=== PATIENT | female | born 1955 | race Caucasian/White ===

== ENCOUNTER → 2016-03-24 | Outpatient (REF) | payer BC ==
[~2016-03-24] MED LIST: COUM2.5T11 PO; GLUCTAB6 PO; MULT1TAB9 PO; PERC5TAB6 PO; RISE1TAB8 PO; TYLE325T5 PO; VITA200016 PO
== END | disposition home or self-care (01) ==
LOC: M LAB REF 15:02
PROVIDERS: ATTEND Physician Assistant
DX: R30.0 Dysuria (principal)

== ENCOUNTER → 2016-08-03 | Outpatient (REF) | payer BC | LOC: M WUC 08:47 | PROVIDERS: ATTEND Physician Assistant | DX: R30.0 Dysuria (principal) ==

== ENCOUNTER → 2016-09-12 | Outpatient (CLI) | payer BC ==
[~2016-09-12] MED LIST changes: -COUM2.5T11 PO; +COUM2.5T17 PO; +PERC5TAB12 PO; -PERC5TAB6 PO
--- NOTE | 2016-09-13 09:45 | DEXA ---
AP SPINE L1 - L4 1.023 -1.4 -0.3 LT FEMUR TOTAL 0.805 -1.6 -0.7 RT FEMUR TOTAL Right hip replacement. TOTAL BODY TOTAL OTHER DUAL FEMUR FRAX* ASSESSMENT Risk factors: None. 10 year probability of fracture Major osteoporotic fracture 7.2 % Hip fracture 0.8 % COMMENTS: There is low bone density of the spine. There is low bone density of the left hip. The density of the spine has increased 10.2% since 08/17/2013. The density of the left hip has increased 0.2% since 08/17/2013. FOLLOW-UP: Recommendation for the next bone density exam: 2 years. ADRIEN
== END ==
LOC: M WHC 08:36
PROVIDERS: ATTEND Orthopaedic Surgery
DX: M54.5 Low back pain (principal); Z78.0 Asymptomatic menopausal state

== ENCOUNTER → 2016-09-24 | Outpatient (CLI) | payer BC ==
--- NOTE | 2016-09-29 07:49 | SLEEPCENT ---
DATE OF PROCEDURE: 09/24/2016 ORDERED BY: Kady Angel Nocturnal polysomnography was performed for the titration of pressure therapy in this patient with a clinical diagnosis of obstructive sleep apnea syndrome supported by home testing revealing a respiratory event index of 10. For testing, the patient was fit with a [employer] Brevida Nasal Pillow device of small size and 4 cm of water pressure were applied to the circuit and the lights were extinguished. 7 hours and 10 minutes of data were reviewed. There were 391 minutes of sleep identified. Sleep latency was short at 4.5 minutes. Rapid eye movement (REM) latency was normal at 89 minutes. Sleep architecture was good with 4 REM periods appreciated. Overall sleep efficiency was 94%. The patient's electrocardiogram (EKG) showed a sinus rhythm with an average heart rate of 54 beats per minute. Electroencephalogram (EEG) showed fairly normal waveforms for awake and sleep. Respiratory events were fully palliated with CPAP at a pressure of +5. There was some limb activity and 1 train of 30 events. Limb movement arousal index was borderline at 5.8. IMPRESSION: Obstructive sleep apnea syndrome (G47.33). RECOMMENDATION: Nightly use of pressure therapy at 5 cm of water.
== END ==
LOC: M SLEEP 20:12
PROVIDERS: ATTEND Nurse Practitioner Adult Health
DX: G47.33 Obstructive sleep apnea (adult) (pediatric) (principal)

== ENCOUNTER → 2017-04-29 | Outpatient (REF) | payer BC | LOC: M SFHCWAGY 15:16 | DX: Z12.4 Encounter for screening for malignant neoplasm of cervix (principal); N95.2 Postmenopausal atrophic vaginitis | CPT/HCPCS: G0123 ==

== ENCOUNTER → 2017-04-29 | Outpatient (CLI) | payer BC | LOC: M WHC 14:39 | DX: Z12.31 Encounter for screening mammogram for malignant neoplasm of breast (principal) | CPT/HCPCS: 77067 ==

== ENCOUNTER → 2018-11-17 | Outpatient (CLI) | payer BC ==
--- NOTE | 2018-11-17 15:47 | REPMRS ---
Patient History The patient states she had a clinical breast exam in 11/2018. Family history of colorectal cancer at age 70 in maternal grandmother. Took hormonal contraceptives for 8 years. 3D TOMOSYNTHESIS WAS PERFORMED. [facility] lifetime risk for breast cancer is 7.4%. Digital Woman Screen Mammo: November 17, 2018 - Exam #: [id number] Bilateral CC and MLO view(s) were taken. Technologist: Dayan Ashraf, Technologist Prior study comparison: April 29, 2017, digital woman screen mammo performed at [facility]. January 02, 2016, digital woman screen mammo performed at [place] [facility]. FINDINGS: The breast tissue is extremely dense which could obscure a lesion on mammography. There has been no change in the appearance of the mammogram from the prior studies. There is a moderate amount of residual fibroglandular tissue which is fairly symmetric. There is no interval development of dominant mass, areas of architectural distortion, or clustered microcalcification typical of malignancy. Assessment: BI-RADS/ACR category 1 mammogram. Negative Mammogram. Recommendation Routine screening mammogram in 1 year (for women over age 40). This mammogram was interpreted with the aid of an FDA-approved computer-aided dectection system. Electronically Signed By: Dat Zapata MD 11/17/18 [id number]
== END ==
LOC: M WHC 14:53
PROVIDERS: ATTEND Nurse Practitioner Family
DX: Z12.31 Encounter for screening mammogram for malignant neoplasm of breast (principal)

== ENCOUNTER → 2018-11-17 | Outpatient (REF) | payer BC | LOC: M SFHCWAGY 17:06 | PROVIDERS: ATTEND Nurse Practitioner Family | DX: R35.0 Frequency of micturition (principal) ==

== ENCOUNTER → 2018-11-25 | Outpatient (REF) | payer BC ==
[2018-11-25 16:19] LABS: APPEARANCE, URINE CLEAR (CLEAR); BACTERIA, URINE AUTO NEGATIVE (NEGATIVE); BILIRUBIN, URINE AUTO NEGATIVE (NEGATIVE); BLOOD, URINE BLOOD 1+ (NEGATIVE); COLOR, URINE YELLOW (YELLOW); GLUCOSE, URINE (UA) AUTO NEGATIVE (NEGATIVE); KETONE, URINE AUTO NEGATIVE (NEGATIVE); LEUKOCYTE ESTERASE, URINE AUTO NEGATIVE (NEGATIVE); MUCUS, URINE SMALL (NEGATIVE); NITRITE, URINE AUTO NEGATIVE (NEGATIVE); PROTEIN, URINE AUTO NEGATIVE (NEGATIVE); RBC, URINE AUTO 4 /HPF (0-3); SPECIFIC GRAVITY URINE AUTO 1.009 (1.002-1.035); SQUAMOUS EPITHELIAL CELL UR AU 0 /HPF (0-6); UROBILINOGEN, URINE AUTO 0.2 mg/dL (0.0-2.0); WBC, URINE AUTO 1 /HPF (0-3)
== END ==
LOC: M SFHCWAGY 15:36
PROVIDERS: ATTEND Nurse Practitioner Family
DX: R31.29 Other microscopic hematuria (principal)

== ENCOUNTER → 2019-02-09 | Outpatient (CLI) | payer BC ==
--- NOTE | 2019-02-11 11:01 | DEXA ---
AP SPINE L1 - L4 0.964 -1.9 -0.5 LT FEMUR TOTAL 0.792 -1.7 -0.7 LT NECK 0.780 -1.9 -0.6 RT FEMUR TOTAL Right hip replacement. RT NECK Right hip replacement. TOTAL BODY TOTAL OTHER COMMENTS: There is low bone density of the spine. There is low bone density of the left hip. The decreased density of the spine does represent a significant change. The decreased density of the left hip does not represent a significant change. The density of the spine has increased 3.9% since the initial exam on 08/17/2013. The spine density has decreased 5.8% since the most recent exam on 09/12/2016. The density of the left hip has decreased 1.4% since the initial exam on 08/17/2013. The density of the left hip has decreased 1.6% since the most recent exam on 09/12/2016. FOLLOW-UP: Recommendation for the next bone density exam: 2 years. ADRIEN
== END ==
LOC: M WHC 10:57
PROVIDERS: ATTEND Nurse Practitioner Family
DX: N95.9 Unspecified menopausal and perimenopausal disorder (principal)

== ENCOUNTER → 2019-12-07 | Outpatient (CLI) | payer BC ==
--- NOTE | 2019-12-07 15:42 | REPMRS ---
Patient History The patient states she had a clinical breast exam in November 2019. Family history of colorectal cancer at age 70 in maternal grandmother. Took hormonal contraceptives for 8 years. 3D TOMOSYNTHESIS WAS PERFORMED. [facility] for [facility] cancer is 7.2%. [facility] Digital Woman Screen Mammo: December 07, 2019 - Exam #: [id number] Bilateral CC and MLO view(s) were taken. Technologist: Genevieve Watson, Technologist Prior study comparison: November 17, 2018, bilateral digital woman screen mammo performed at [facility]. April 29, 2017, digital woman screen mammo performed at [facility]. FINDINGS: The breast tissue is heterogeneously dense. This may lower the sensitivity of mammography. There has been no change in the appearance of the mammogram from the prior studies. There is a moderate amount of residual fibroglandular tissue which is fairly symmetric. There is no interval development of dominant mass, areas of architectural distortion, or clustered microcalcification typical of malignancy. Assessment: BI-RADS/ACR category 1 mammogram. Negative Mammogram. Recommendation Routine screening mammogram in 1 year (for women over age 40). This mammogram was interpreted with the aid of an FDA-approved computer-aided dectection system. Electronically Signed By: Dat Zapata MD 12/07/19 [id number]
== END ==
LOC: M WHC 14:23
PROVIDERS: ATTEND Nurse Practitioner Family
DX: Z12.31 Encounter for screening mammogram for malignant neoplasm of breast (principal)

== ENCOUNTER → 2019-12-07 | Outpatient (REF) | payer BC | LOC: M SFHCWAGY 17:10 | PROVIDERS: ATTEND Nurse Practitioner Family | DX: Z12.4 Encounter for screening for malignant neoplasm of cervix (principal) | CPT/HCPCS: 87624; G0123 ==

== ENCOUNTER → 2021-01-30 | Outpatient (REF) | payer BC | LOC: M SFHCWAGY 17:23 | PROVIDERS: ATTEND Nurse Practitioner Women's Health | DX: Z12.4 Encounter for screening for malignant neoplasm of cervix (principal) ==

== ENCOUNTER → 2021-01-30 | Outpatient (CLI) | payer BC ==
--- NOTE | 2021-01-30 15:43 | REPMRS ---
Patient History The patient states she had a clinical breast exam in January 2021. Family history of colorectal cancer at age 70 in maternal grandmother. Took hormonal contraceptives for 8 years. Tomosynthesis is performed. [facility] d[facility] Patient states no breast complaints today. Patient has signed MRS History Sheet. Digital Woman Screen Mammo: January 30, 2021 - Exam #: [id number] Bilateral CC and MLO view(s) were taken. Technologist: Gillian Nielsenologist Prior study comparison: December 07, 2019, bilateral digital woman screen mammo performed at [facility]. November 17, 2018, bilateral digital woman screen mammo performed at [facility]. FINDINGS: The breast tissue is extremely dense which could obscure a lesion on mammography. There has been no change in the appearance of the mammogram from the prior studies. There is dense fibroglandular tissue which is fairly symmetric. There is no interval development of dominant mass, areas of architectural distortion, or clustered microcalcification typical of malignancy. No significant changes when compared with prior studies. Assessment: BI-RADS/ACR category 1 mammogram. Negative Mammogram. Recommendation Routine screening mammogram in 1 year (for women over age 40). This mammogram was interpreted with the aid of an FDA-approved computer-aided dectection system. Electronically Signed By: Dat Zapata MD 01/30/21 [id number]
== END ==
LOC: M WHC 13:07
PROVIDERS: ATTEND Nurse Practitioner Women's Health
DX: Z12.31 Encounter for screening mammogram for malignant neoplasm of breast (principal); R92.2 Inconclusive mammogram

== ENCOUNTER → 2021-05-23 | Outpatient (CLI) | payer BC | LOC: M WUC 13:03 | PROVIDERS: ATTEND Internal Medicine | DX: R07.89 Other chest pain (principal) ==

== ENCOUNTER 2021-07-15 18:33 | Emergency (ER) | payer BC ==
[~2021-07-15] VITALS: Ht 175.3 cm; Wt 62.2 kg
[2021-07-15] MEDS ORDERED: LEXA1TAB PO (18:40)
[2021-07-15] MEDS ORDERED: PROPARACAINE 0.5% OPHTH SOL 15ML OD ONE (22:15)
[2021-07-15] MEDS ORDERED: KETOROLAC 30 MG/ML 1ML VIAL IM ONE (23:05)
[2021-07-15 23:53] VITALS: BP 152/102
== END 2021-07-16 | disposition home or self-care (01) ==
LOC: M ED 18:33
DX: H11.89 Other specified disorders of conjunctiva (principal); Z77.29 Contact with and (suspected) exposure to other hazardous substances; R03.0 Elevated blood-pressure reading, without diagnosis of hypertension; Z79.899 Other long term (current) drug therapy; Z88.0 Allergy status to penicillin
CPT/HCPCS: 96372; 99283; J1885

== ENCOUNTER → 2021-07-17 | Outpatient (CLI) | payer BC ==
[~2021-07-17] MED LIST changes: +ACET-683 PO; +IBUP1TAB7 PO; +LEXA1TAB PO
== END ==
LOC: M WUC 11:55
PROVIDERS: ATTEND Physician Assistant
DX: R07.89 Other chest pain (principal)

== ENCOUNTER 2021-07-18 12:10 | Emergency (ER) | payer BC ==
[~2021-07-18] VITALS: Ht 175.3 cm; Wt 62.7 kg
[~2021-07-18 12:10] MED LIST changes: -ACET-683 PO; -IBUP1TAB7 PO
[2021-07-18] MEDS ORDERED: ACET-683 PO (12:24)
[2021-07-18] MEDS ORDERED: IBUP1TAB7 PO (12:24)
[2021-07-18] MEDS ORDERED: BOOSTRIX/ADACEL VACCINE (DIPHTH/PERTUSS/ACELL/TETANUS) 0.5ML SYR IM ONE (15:20)
[2021-07-18 15:56] VITALS: BP 162/100
== END 2021-07-18 16:00 | disposition home or self-care (01) ==
LOC: M ED 12:10
DX: S00.11XA Contusion of right eyelid and periocular area, initial encounter (principal); W19.XXXA Unspecified fall, initial encounter; Y92.410 Unspecified street and highway as the place of occurrence of the external cause; Y93.9 Activity, unspecified; Y99.9 Unspecified external cause status; K57.92 Diverticulitis of intestine, part unspecified, without perforation or abscess without bleeding; Z87.440 Personal history of urinary (tract) infections; Z79.899 Other long term (current) drug therapy; Z88.0 Allergy status to penicillin

== ENCOUNTER → 2022-06-11 | Outpatient (CLI) | payer BC ==
[~2022-06-11] MED LIST changes: +ACET-683 PO; -GLUCTAB6 PO; +GLUCTAB7 PO; +IBUP1TAB7 PO
== END ==
LOC: M WHC 10:32
PROVIDERS: ATTEND Nurse Practitioner Family
DX: Z12.31 Encounter for screening mammogram for malignant neoplasm of breast (principal); M85.89 Other specified disorders of bone density and structure, multiple sites; Z13.820 Encounter for screening for osteoporosis

== ENCOUNTER → 2022-06-11 | Outpatient (REF) | payer BC | LOC: M PLALAB 13:08 | PROVIDERS: ATTEND Nurse Practitioner Family | DX: Z12.4 Encounter for screening for malignant neoplasm of cervix (principal) | CPT/HCPCS: 87624; G0123 ==

== ENCOUNTER → 2023-06-09 | Outpatient (REF) | payer BC ==
[2023-06-09 13:51] LABS: FOLATE > 24.0 NG/ML (>5.4); VITAMIN B12 LEVEL 1073 PG/ML (211-911)
== END ==
LOC: M LAB REF 12:01
PROVIDERS: ATTEND Internal Medicine
DX: G60.9 Hereditary and idiopathic neuropathy, unspecified (principal)

== ENCOUNTER → 2023-09-09 | Outpatient (CLI) | payer MEDICARE, BC | LOC: M WHC 14:49 | PROVIDERS: ATTEND Orthopaedic Surgery | DX: M25.561 Pain in right knee (principal) ==

== ENCOUNTER → 2023-09-23 | Outpatient (CLI) | payer BC, MEDICARE | LOC: M WHC 13:34 | PROVIDERS: ATTEND Advanced Practice Midwife | DX: Z12.31 Encounter for screening mammogram for malignant neoplasm of breast (principal); R92.333 Mammographic heterogeneous density, bilateral breasts ==

== ENCOUNTER → 2023-12-02 | Outpatient (CLI) | payer MEDICARE, BC | LOC: M PLAIMG 14:26 | PROVIDERS: ATTEND Orthopaedic Surgery | DX: M25.561 Pain in right knee (principal); M25.461 Effusion, right knee; M71.21 Synovial cyst of popliteal space [Baker], right knee; S83.241A Other tear of medial meniscus, current injury, right knee, initial encounter; X58.XXXA Exposure to other specified factors, initial encounter; Y92.9 Unspecified place or not applicable; Y93.9 Activity, unspecified; Y99.9 Unspecified external cause status ==

== ENCOUNTER 2024-04-02 10:19 | Day surgery (SDC) | payer MEDICARE, BC ==
[~2024-04-02] VITALS: Ht 175.3 cm; Wt 62.4 kg
[~2024-04-02 10:19] MED LIST changes: +ALPR0.5T3 PO; +MULT-90 PO; +VITA100093 PO; +YUVA10TA3
[2024-04-02 14:11] VITALS: TEMP 97.8
[2024-04-02] MEDS ORDERED: LIDOCAINE 2% 100MG/5ML SDV (FOR ANES.) As Ordered ONE (14:20)
[2024-04-02] MEDS ORDERED: propofoL 200 MG/20 ML VIAL As Ordered ONE (14:20)
[2024-04-02 14:30] VITALS: BP 129/80; O2SAT 99
== END 2024-04-02 14:43 | disposition home or self-care (01) ==
LOC: M OPP 10:19
PROVIDERS: ATTEND Surgery
DX: Z12.11 Encounter for screening for malignant neoplasm of colon (principal); K64.2 Third degree hemorrhoids; G47.30 Sleep apnea, unspecified; Z99.89 Dependence on other enabling machines and devices; Z88.1 Allergy status to other antibiotic agents

== ENCOUNTER → 2025-02-08 | Outpatient (CLI) | payer MEDICARE, BC | LOC: M PLAIMG 11:21 | PROVIDERS: ATTEND Orthopaedic Surgery | DX: M70.62 Trochanteric bursitis, left hip (principal) ==

== ENCOUNTER → 2025-03-01 | Outpatient (CLI) | payer MEDICARE, BC | LOC: M WHC 13:03 | PROVIDERS: ATTEND Orthopaedic Surgery | DX: M16.12 Unilateral primary osteoarthritis, left hip (principal); M85.88 Other specified disorders of bone density and structure, other site ==

== ENCOUNTER → 2025-03-08 | Outpatient (CLI) | payer MEDICARE | LOC: M WHC 14:04 | PROVIDERS: ATTEND Advanced Practice Midwife | DX: Z12.31 Encounter for screening mammogram for malignant neoplasm of breast (principal) ==